=== PATIENT | female | born 1985 | race Asian ===

== ENCOUNTER → 2017-08-18 | Outpatient (CLI) | payer BC ==
--- NOTE | 2017-08-18 22:57 | Diagnostic Imaging Report ---
EXAM: CHEST 2 VIEWS, PA and lateral INDICATION: Bronchitis COMPARISON: None FINDINGS: LINES/TUBES: None LUNGS: No consolidations or edema. PLEURA: No effusions or pneumothorax. HEART AND MEDIASTINUM: Normal size and contour. BONES AND SOFT TISSUES: No acute findings. IMPRESSION: No acute thoracic abnormality. Signed by: Dr. Cira Correia M.D. on 08/18/2017 10:54 PM
== END ==
LOC: RAD 07:30
PROVIDERS: ATTEND Family Medicine
DX: J40 Bronchitis, not specified as acute or chronic (principal)
CPT/HCPCS: 71046

== ENCOUNTER → 2018-01-25 | Outpatient (CLI) | payer BC ==
[2018-01-25 09:33] LABS: BASOPHILS % 0.6 % (0.0-1.0); EOSINOPHILS # (AUTO) 0.3 (0.0-0.4); EOSINOPHILS % 4.5 % (0.0-6.0); HEMATOCRIT 40.1 % (34.2-44.1); LYMPHOCYTES # (AUTO) 3.2 (1.0-3.2); LYMPHOCYTES % 48.7 % (18.0-39.1); MEAN CORPUSCULAR HEMOGLOBIN 30.3 pg (28-32); MEAN CORPUSCULAR HGB CONC 32.4 g/dL (31-35); MEAN CORPUSCULAR VOLUME 93.5 fL (81-99); MONOCYTES # (AUTO) 0.4 (0.2-0.8); MONOCYTES % 6.8 % (4.4-11.3); NEUTROPHILS # (AUTO) 2.5 (2.1-6.9); NEUTROPHILS % 39.2 % (38.7-80.0); PLATELET COUNT 285 x10e3/uL (140-360); RED BLOOD COUNT 4.29 x10e6/uL (3.6-5.1); RED CELL DISTRIBUTION WIDTH 11.9 % (11.7-14.4)
[2018-01-25 10:00] LABS: ALANINE AMINOTRANSFERASE 16 IU/L (0-55); ALBUMIN 4.4 g/dL (3.5-5.0); ALBUMIN/GLOBULIN RATIO 1.4 (0.8-2.0); ALKALINE PHOSPHATASE 59 IU/L (40-150); ANION GAP 14.6 mmol/L (8-16); BLOOD UREA NITROGEN 13 mg/dL (7-26); BUN/CREATININE RATIO 17 (6-25); CALCIUM 9.3 mg/dL (8.4-10.2); CARBON DIOXIDE 24 mmol/L (22-29); CHLORIDE 105 mmol/L (98-107); CHOL/HDL RATIO 2.8 (3.0-3.6); CHOLESTEROL 186 MD/DL (0-199); CREATININE, SERUM 0.76 mg/dL (0.57-1.11); EST GLOMERULAR FILTRATION RATE > 60 ML/MIN (60-); GLUCOSE 99 mg/dL (74-118); HDL CHOLESTEROL 66 MG/DL (40-60); LDL CHOLESTEROL 108 MG/DL (60-130); POTASSIUM 3.6 mmol/L (3.5-5.1); SODIUM 140 mmol/L (136-145); TRIGLYCERIDES 61 MG/DL (0-149)
[2018-01-25 11:28] LABS: FREE T4 (FREE THYROXINE) 1.06 ng/dL (0.9-1.8); THYROID STIMULATING HORMONE 3.841 uIU/mL (0.350-4.940)
== END ==
LOC: LAB 09:00
PROVIDERS: ATTEND Family Medicine
DX: Z00.00 Encounter for general adult medical examination without abnormal findings (principal)
CPT/HCPCS: 36415; 80053; 80061; 82607; 82652; 83036; 84439; 84443; 84445; 84479; 85025

== ENCOUNTER → 2018-02-09 | Outpatient (CLI) | payer BC ==
--- NOTE | 2018-02-09 10:41 | Diagnostic Imaging Report ---
PROCEDURE:US THYROID COMPARISON:Thyroid ultrasound 01/24/2017. INDICATIONS:NODULE TECHNIQUE:Transverse and sagittal images were obtained of the thyroid gland. FINDINGS: Right thyroid lobe: Surgically removed Left thyroid lobe: Unchanged appearance of 0.5 x 0.3 x 0.5 cm hypoechoic (2 points), solid (2 points), wider than tall (zero points), well marginated (zero points), with a single echogenic focus (one point) nodule in the lower pole. A total of 5 points, TI-RADS category 4. The left lobe measures 4.9 x 1.4 x 1.8 cm. Isthmus: 0.4 cm. CONCLUSION: Status post right thyroidectomy without abnormal soft tissue in the surgical bed. Unchanged appearance of solitary hypoechoic nodule in the left lobe of the thyroid, TI-RADS category 4, moderately suspicious. Continued follow-up ultrasound in one year is suggested based on size. Dictated by: BRUNO VEGA M.D. on 02/09/2018 at 10:49 Electronically approved by: BRUNO VEGA M.D. on 02/09/2018 at 10:49
== END ==
LOC: US 08:46
PROVIDERS: ATTEND Family Medicine
DX: E04.1 Nontoxic single thyroid nodule (principal)
CPT/HCPCS: 76536

== ENCOUNTER → 2018-10-13 | Outpatient (CLI) | payer BC ==
[2018-10-13 08:50] LABS: BASOPHILS % 0.4 % (0.0-1.0); EOSINOPHILS # (AUTO) 0.2 (0.0-0.4); HEMATOCRIT 39.1 % (34.2-44.1); LYMPHOCYTES # (AUTO) 3.2 (1.0-3.2); LYMPHOCYTES % 44.9 % (18.0-39.1); MEAN CORPUSCULAR HEMOGLOBIN 30.2 pg (28-32); MEAN CORPUSCULAR HGB CONC 33.2 g/dL (31-35); MEAN CORPUSCULAR VOLUME 90.9 fL (81-99); MONOCYTES # (AUTO) 0.6 (0.2-0.8); NEUTROPHILS # (AUTO) 3.1 (2.1-6.9); NEUTROPHILS % 43.4 % (38.7-80.0); PLATELET COUNT 299 x10e3/uL (140-360); RED CELL DISTRIBUTION WIDTH 12.1 % (11.7-14.4)
[2018-10-13 09:12] LABS: ALANINE AMINOTRANSFERASE 15 IU/L (0-55); ALBUMIN 4.5 g/dL (3.5-5.0); ALBUMIN/GLOBULIN RATIO 1.5 (0.8-2.0); ALKALINE PHOSPHATASE 70 IU/L (40-150); ANION GAP 13.6 mmol/L (8-16); BLOOD UREA NITROGEN 13 mg/dL (7-26); BUN/CREATININE RATIO 15 (6-25); CALCIUM 9.1 mg/dL (8.4-10.2); CARBON DIOXIDE 25 mmol/L (22-29); CHLORIDE 102 mmol/L (98-107); CREATININE, SERUM 0.84 mg/dL (0.57-1.11); EST GLOMERULAR FILTRATION RATE > 60 ML/MIN (60-); GLUCOSE 89 mg/dL (74-118); POTASSIUM 3.6 mmol/L (3.5-5.1); SODIUM 137 mmol/L (136-145)
[2018-10-13 09:25] LABS: FREE THYROXINE INDEX 2.4741 (1.4-3.8); THYROID STIMULATING HORMONE 2.383 uIU/mL (0.350-4.940)
== END ==
LOC: LAB 08:30
PROVIDERS: ATTEND Family Medicine
DX: E04.1 Nontoxic single thyroid nodule (principal); R10.12 Left upper quadrant pain
CPT/HCPCS: 36415; 80053; 84436; 84443; 84479; 85025

== ENCOUNTER → 2018-10-17 | Outpatient (CLI) | payer BC ==
--- NOTE | 2018-10-17 10:17 | Diagnostic Imaging Report ---
EXAM: US ABDOMEN COMPLETE DATE: 10/17/2018 7:32 AM INDICATION: Abdominal pain COMPARISON: None TECHNIQUE: Transverse and longitudinal dumont scale and color doppler sonographic images of the upper abdomen were obtained. FINDINGS: There is no evidence of fluid or masses seen in the area of clinical concern in the right lower quadrant. LIVER 12.0 cm in the right midclavicular line. Increased echogenicity of the liver with normal contour, no masses. SPLEEN 9.0 cm in maximum diameter. Normal echogenicity, no masses. GALLBLADDER No gallbladder wall thickening, distension, stone, or pericholecystic fluid. NEgative reported sonographic Fuller's sign. BILE DUCTS No intra nor extra-hepatic biliary dilation. Common bile duct measures 0.2cm PANCREAS: Visualized portions are normal. RIGHT KIDNEY: 11.3 cm Echogenicity: Normal Collecting System: No hydronephrosis Stones: None Cyst/Mass: None LEFT KIDNEY: 11.0 cm Echogenicity: Normal Collecting System: No hydronephrosis Stones: None Cyst/Mass: None VESSELS: Aorta: Visualized portions are within normal size limits Inferior Vena Cava: Visualized portions are normal Main Portal Vein: 0.5 cm, normal size with hepatopetal flow. FREE FLUID: None IMPRESSION: No cholelithiasis or sonographic evidence of cholecystitis. Hepatic steatosis. Signed by: Leslie Damon MD on 10/17/2018 10:13 AM
== END ==
LOC: US 07:10
PROVIDERS: ATTEND Family Medicine
DX: R10.12 Left upper quadrant pain (principal)
CPT/HCPCS: 76700

== ENCOUNTER → 2019-02-21 | Outpatient (CLI) | payer BC ==
[2019-02-21 09:18] LABS: BASOPHILS # (AUTO) 0.1 (0.0-0.1); BASOPHILS % 0.9 % (0.0-1.0); EOSINOPHILS # (AUTO) 0.3 (0.0-0.4); EOSINOPHILS % 4.8 % (0.0-6.0); HEMATOCRIT 39.9 % (34.2-44.1); HEMOGLOBIN 13.1 g/dL (12.0-16.0); LYMPHOCYTES # (AUTO) 3.1 (1.0-3.2); LYMPHOCYTES % 43.3 % (18.0-39.1); MEAN CORPUSCULAR HEMOGLOBIN 30.5 pg (28-32); MEAN CORPUSCULAR HGB CONC 32.8 g/dL (31-35); MEAN CORPUSCULAR VOLUME 92.8 fL (81-99); MONOCYTES # (AUTO) 0.6 (0.2-0.8); MONOCYTES % 8.4 % (4.4-11.3); NEUTROPHILS % 42.5 % (38.7-80.0); PLATELET COUNT 282 x10e3/uL (140-360); RED CELL DISTRIBUTION WIDTH 11.6 % (11.7-14.4)
[2019-02-21 09:42] LABS: ALANINE AMINOTRANSFERASE 14 IU/L (0-55); ALBUMIN 4.1 g/dL (3.5-5.0); ALBUMIN/GLOBULIN RATIO 1.1 (0.8-2.0); ALKALINE PHOSPHATASE 86 IU/L (40-150); ANION GAP 11.5 mmol/L (8-16); BLOOD UREA NITROGEN 14 mg/dL (7-26); BUN/CREATININE RATIO 19 (6-25); CALCIUM 9.2 mg/dL (8.4-10.2); CARBON DIOXIDE 27 mmol/L (22-29); CHLORIDE 103 mmol/L (98-107); CHOL/HDL RATIO 2.9 (3.0-3.6); CHOLESTEROL 174 MD/DL (0-199); CREATININE, SERUM 0.75 mg/dL (0.57-1.11); EST GLOMERULAR FILTRATION RATE > 60 ML/MIN (60-); GLUCOSE 93 mg/dL (74-118); HDL CHOLESTEROL 59 MG/DL (40-60); LDL CHOLESTEROL 98 MG/DL (60-130); POTASSIUM 3.5 mmol/L (3.5-5.1); SODIUM 138 mmol/L (136-145); TRIGLYCERIDES 85 MG/DL (0-149)
[2019-02-21 09:58] LABS: FREE THYROXINE INDEX 2.1129 (1.4-3.8); THYROID STIMULATING HORMONE 3.003 uIU/mL (0.350-4.940)
== END ==
LOC: LAB 08:59
PROVIDERS: ATTEND Family Medicine
DX: Z00.00 Encounter for general adult medical examination without abnormal findings (principal)
CPT/HCPCS: 36415; 80053; 80061; 82652; 83036; 84436; 84443; 84479; 84550; 85025

== ENCOUNTER → 2020-04-07 | Outpatient (CLI) | payer OTHER ==
[2020-04-07 09:11] LABS: BASOPHILS % 0.5 % (0.0-1.0); EOSINOPHILS # (AUTO) 0.2 (0.0-0.4); EOSINOPHILS % 3.2 % (0.0-6.0); HEMOGLOBIN 13.2 g/dL (12.0-16.0); LYMPHOCYTES # (AUTO) 2.9 (1.0-3.2); LYMPHOCYTES % 38.2 % (18.0-39.1); MEAN CORPUSCULAR HEMOGLOBIN 29.8 pg (28-32); MEAN CORPUSCULAR HGB CONC 32.2 g/dL (31-35); MEAN CORPUSCULAR VOLUME 92.6 fL (81-99); MONOCYTES # (AUTO) 0.5 (0.2-0.8); MONOCYTES % 6.2 % (4.4-11.3); NEUTROPHILS # (AUTO) 3.9 (2.1-6.9); NEUTROPHILS % 51.6 % (38.7-80.0); PLATELET COUNT 281 x10e3/uL (140-360); RED BLOOD COUNT 4.43 x10e6/uL (3.6-5.1); RED CELL DISTRIBUTION WIDTH 11.8 % (11.7-14.4)
[2020-04-07 09:46] LABS: ALANINE AMINOTRANSFERASE 11 IU/L (0-55); ALBUMIN 4.6 g/dL (3.5-5.0); ALBUMIN/GLOBULIN RATIO 1.6 (0.8-2.0); ALKALINE PHOSPHATASE 60 IU/L (40-150); ANION GAP 13.4 mmol/L (8-16); BLOOD UREA NITROGEN 11 mg/dL (7-26); BUN/CREATININE RATIO 15 (6-25); CALCIUM 8.5 mg/dL (8.4-10.2); CARBON DIOXIDE 23 mmol/L (22-29); CHLORIDE 105 mmol/L (98-107); CHOL/HDL RATIO 2.8 (3.0-3.6); CHOLESTEROL 176 MD/DL (0-199); CREATININE, SERUM 0.72 mg/dL (0.57-1.11); EST GLOMERULAR FILTRATION RATE > 60 ML/MIN (60-); GLUCOSE 85 mg/dL (74-118); HDL CHOLESTEROL 63 MG/DL (40-60); LDL CHOLESTEROL 102 MG/DL (60-130); POTASSIUM 3.4 mmol/L (3.5-5.1); SODIUM 138 mmol/L (136-145); TRIGLYCERIDES 53 MG/DL (0-149)
[2020-04-07 10:10] LABS: THYROID STIMULATING HORMONE 2.411 uIU/mL (0.350-4.940)
== END ==
LOC: LAB 08:52
PROVIDERS: ATTEND Family Medicine
DX: Z00.00 Encounter for general adult medical examination without abnormal findings (principal); E04.1 Nontoxic single thyroid nodule; E55.9 Vitamin D deficiency, unspecified
CPT/HCPCS: 36415; 80053; 80061; 82306; 83036; 84436; 84443; 84480; 85025; 86376

== ENCOUNTER → 2020-08-10 | Outpatient (CLI) | payer OTHER | LOC: RAD 11:05 | PROVIDERS: ATTEND Family Medicine | DX: K76.0 Fatty (change of) liver, not elsewhere classified (principal); R05 Cough | CPT/HCPCS: 71046 ==

== ENCOUNTER → 2020-08-21 | Outpatient (CLI) | payer OTHER | LOC: US 09:36 | PROVIDERS: ATTEND Family Medicine | DX: K76.0 Fatty (change of) liver, not elsewhere classified (principal); R05 Cough | CPT/HCPCS: 76705 ==

== ENCOUNTER → 2020-12-28 | Outpatient (CLI) | payer OTHER | LOC: RAD 23:48 | PROVIDERS: ATTEND Family Medicine | DX: M54.14 Radiculopathy, thoracic region (principal) | CPT/HCPCS: 72070 ==

== ENCOUNTER → 2021-02-13 | Outpatient (CLI) | payer OTHER ==
[2021-02-13 10:30] LABS: BASOPHILS % 0.7 % (0.0-1.0); EOSINOPHILS # (AUTO) 0.2 (0.0-0.4); EOSINOPHILS % 3.7 % (0.0-6.0); HEMATOCRIT 43.1 % (34.2-44.1); HEMOGLOBIN 13.6 g/dL (12.0-16.0); LYMPHOCYTES # (AUTO) 2.4 (1.0-3.2); LYMPHOCYTES % 40.8 % (18.0-39.1); MEAN CORPUSCULAR HGB CONC 31.6 g/dL (31-35); MEAN CORPUSCULAR VOLUME 94.9 fL (81-99); MONOCYTES # (AUTO) 0.4 (0.2-0.8); MONOCYTES % 5.9 % (4.4-11.3); NEUTROPHILS # (AUTO) 2.9 (2.1-6.9); NEUTROPHILS % 48.7 % (38.7-80.0); PLATELET COUNT 296 x10e3/uL (140-360); RED BLOOD COUNT 4.54 x10e6/uL (3.6-5.1); RED CELL DISTRIBUTION WIDTH 11.8 % (11.7-14.4)
[2021-02-13 11:10] LABS: ALBUMIN 4.4 g/dL (3.5-5.0); ALBUMIN/GLOBULIN RATIO 1.3 (0.8-2.0); ANION GAP 14.8 mmol/L (8-16); CALCIUM 8.6 mg/dL (8.4-10.2); CREATININE, SERUM 0.72 mg/dL (0.57-1.11); POTASSIUM 3.8 mmol/L (3.5-5.1)
[2021-02-13 11:34] LABS: FREE THYROXINE INDEX 1.9498 (1.4-3.8); THYROID STIMULATING HORMONE 1.109 uIU/mL (0.350-4.940)
== END ==
LOC: LAB 10:17
PROVIDERS: ATTEND Family Medicine
DX: E55.9 Vitamin D deficiency, unspecified (principal); E04.1 Nontoxic single thyroid nodule; K75.81 Nonalcoholic steatohepatitis (NASH)
CPT/HCPCS: 36415; 80053; 82977; 84436; 84443; 84479; 85025; 86376

== ENCOUNTER → 2022-03-18 | Outpatient (CLI) | payer BC ==
[2022-03-18 10:43] LABS: BASOPHILS % 0.8 % (0.0-1.0); EOSINOPHILS # (AUTO) 0.3 (0.0-0.4); EOSINOPHILS % 5.1 % (0.0-6.0); HEMATOCRIT 43.5 % (34.2-44.1); HEMOGLOBIN 14.5 g/dL (12.0-16.0); LYMPHOCYTES # (AUTO) 2.2 (1.0-3.2); LYMPHOCYTES % 41.2 % (18.0-39.1); MEAN CORPUSCULAR HEMOGLOBIN 30.3 pg (28-32); MEAN CORPUSCULAR HGB CONC 33.3 g/dL (31-35); MEAN CORPUSCULAR VOLUME 90.8 fL (81-99); MONOCYTES # (AUTO) 0.3 (0.2-0.8); MONOCYTES % 6.5 % (4.4-11.3); NEUTROPHILS # (AUTO) 2.4 (2.1-6.9); PLATELET COUNT 314 x10e3/uL (140-360); RED BLOOD COUNT 4.79 x10e6/uL (3.6-5.1); RED CELL DISTRIBUTION WIDTH 11.5 % (11.7-14.4)
[2022-03-18 11:16] LABS: ALBUMIN 4.6 g/dL (3.5-5.0); ALBUMIN/GLOBULIN RATIO 1.5 (0.8-2.0); ANION GAP 14.7 mmol/L (8-16); CALCIUM 8.9 mg/dL (8.4-10.2); POTASSIUM 3.7 mmol/L (3.5-5.1)
[2022-03-18 11:39] LABS: CREATININE, SERUM 0.7 mg/dL (0.57-1.11)
[2022-03-18 11:53] LABS: CHOL/HDL RATIO 2.9 (3.0-3.6)
[2022-03-18 12:15] LABS: FREE T4 (FREE THYROXINE) 0.91 ng/dL (0.8-1.8); THYROID STIMULATING HORMONE 1.199 uIU/mL (0.350-4.940)
== END ==
LOC: LAB 10:17
PROVIDERS: ATTEND Family Medicine
DX: Z00.00 Encounter for general adult medical examination without abnormal findings (principal); K75.81 Nonalcoholic steatohepatitis (NASH); E04.1 Nontoxic single thyroid nodule; E55.9 Vitamin D deficiency, unspecified
CPT/HCPCS: 36415; 80053; 80061; 82977; 83036; 84439; 84443; 84479; 84481; 85025; 86376

== ENCOUNTER → 2022-03-22 | Outpatient (CLI) | payer BC ==
[2022-03-22 08:53] LABS: BILIRUBIN,DIRECT 0.3 mg/dL (0.0-0.5)
== END ==
LOC: LAB 07:37
PROVIDERS: ATTEND Family Medicine
DX: E80.6 Other disorders of bilirubin metabolism (principal)
CPT/HCPCS: 36415; 82248; 83615; 84155